=== PATIENT | female | born 1970 | race Caucasian/White ===

== ENCOUNTER 2021-07-19 11:24 | Observation (INO) ==
[2021-07-19] MEDS ORDERED: NS 1,000 ML IV 1,000 ML IV ONE (12:11)
--- NOTE | 2021-07-19 12:12 | DR.VAGB ---
HPI Time Seen Time Seen by Provider: 07/19/21 12:00 Complaint Chief Complaint Doctors Comments: 50 y/o female presents for evaluation. Having vaginal bleeding. Seen by medical provider yesterday, was called and told her Hgb was very low. Pt has had regular menses, up until last month, missed. Started bleeding 3 weeks ago, has persisted. Feeling lightheaded, weak anf fatigued. Having some lower abdominal discomfort, dull, off/on. Nothing makes it better, nothing makes it worse. Does not take ASA or blood thinning products. Reviewed Nurses Notes Review: Yes Source History Provided: Patient Mode of Arrival Mode of Arrival: Ambulatory [facility] Past Medical History: No Past Surgical History: Yes Past Surgical History Comment: Gastric sleeve Family History History of Family Medical Conditions: No Social History Does patient currently use any type of tobacco product: No Have you used tobacco products in the last 12 months: No Does any household member use tobacco: No Alcohol Use: None Do you use any recreational Drugs:: No ROS Review of Systems Constitutional: Malaise, Weakness and Fatigue Eyes: No Symptoms Reported ENTM: No Symptoms Reported Respiratoy: No Symptoms Reported Cardiovascular: No Symptoms Reported Gastrointestinal/Abdominal: No Symptoms Reported Genitourinary: Bleeding Neurological: No Symptoms Reported Musculoskeletal: No Symptoms Reported Integumentary: No Symptoms Reported Hematologic/Lymphatic: No Symptoms Reported Psychiatric: No Symptoms Reported All Other Systems: Reviewed and Negative PE Vital Signs Vitals: Pulse Rate 76 Respiratory Rate 16 Blood Pressure 109/59 O2 Sat by Pulse Oximetry 100 General Limitations: No Limitations General Appearance: Alert and In No Apparent Distress Head Head Exam: Normal Inspection Eyes Eye exam: PERRL and EOMI ENT ENT Exam: Mucous Membranes Moist Neck Neck Exam: Normal Inspection and Full ROM Chest Chest Inspection: Normal Inspection Respiratory Respiratory Exam: Normal Lung Sounds Bilat; negative Accessory Muscle Use and Respiratory Distress Respiratory Exam: Bilateral: Clear to Auscultation Cardiovascular Cardiovascular Exam: Regular Rate, Normal Rhythm and Normal Heart Sounds Abdominal Exam Abdominal Exam: Normal Bowel Sounds, Soft and Tenderness (mild, across lower abd, no guarding/rebound) Extremities Extremities Exam: Normal Inspection and Full ROM; negative Edema Neurologic Neurological Exam: Alert, Oriented X3 and CN II-XII Intact; negative Motor Sensory Deficit Skin Skin Exam: Warm and Dry MDM Differential diagnosis Diffenential diagnosis: Menometorrhagia, Myomatous uterus and Other (anemia, iron deficiency) COURSE Treatment Treatment: 50 y/o female with heavy vaginal bleeding, anemia. W/u shows Hgb to be 6.4. Rest of labs acceptable. US shows uterus fibroid changes. Discussed with covering MD, Dr Albright. Will admit for blood transfusion, IV replacement therapy. Discussed fibroid uterus, possible treatment options. ROR Labs Reviewed Laboratory Results Reviewed?: Yes Result Diagrams: 07/19/21 13:18 07/19/21 13:18 Laboratory: WBC 4.8 X10^3/uL (3.6-10.0) 07/19/21 13:18 RBC 3.90 X10^6/uL (3.5-5.4) 07/19/21 13:18 Hgb 6.4 g/dL (12.0-16.0) L* 07/19/21 13:18 Hct 22.1 % (36.0-47.0) L 07/19/21 13:18 MCV 56.6 fL (80.0-100.0) L 07/19/21 13:18 MCH 16.4 pg (27.0-34.0) L 07/19/21 13:18 MCHC 29.0 g/dL (33.0-35.0) L 07/19/21 13:18 RDW 19.8 % (11.6-16.5) H 07/19/21 13:18 Plt Count 239 X10^3/uL (150.0-450.0) 07/19/21 13:18 Plt Count Comment Adequate (ADEQUATE) 07/19/21 13:18 MPV 8.8 fL (7.4-11.0) 07/19/21 13:18 Neut % (Auto) 63.8 % (42.0-75.0) 07/19/21 13:18 Lymph % (Auto) 28.5 % (21.0-51.0) 07/19/21 13:18 [place] % (Auto) 5.9 % (0.0-13.0) 07/19/21 13:18 Eos % (Auto) 0.7 % (0.9-2.9) L 07/19/21 13:18 Baso % (Auto) 1.1 % (0.2-1.0) H 07/19/21 13:18 Neut # (Auto) 3.0 x10^3/uL (2.2-4.8) 07/19/21 13:18 Lymph # (Auto) 1.4 X10^3/uL (1.3-2.9) 07/19/21 13:18 [place] # (Auto) 0.3 x10^3/uL (0.3-0.8) 07/19/21 13:18 Eos # (Auto) 0.0 x10^3/uL (0.0-0.2) 07/19/21 13:18 Baso # (Auto) 0.1 X10^3/uL (0.0-0.1) 07/19/21 13:18 Absolute Nucleated RBC 0.1 /100WBC 07/19/21 13:18 Plt Morphology Comment Normal (NORMAL) 07/19/21 13:18 RBC Morphology Abnormal (NORMAL) A 07/19/21 13:18 Hypochromasia 3+ A 07/19/21 13:18 Anisocytosis Slight A 07/19/21 13:18 Microcytosis 3+ A 07/19/21 13:18 Sodium 136 mmol/L (136-145) 07/19/21 13:18 Corrected Sodium TNP 07/19/21 13:18 Potassium 3.5 mmol/L (3.5-5.1) 07/19/21 13:18 Chloride 103 mmol/L (98-107) 07/19/21 13:18 Carbon Dioxide 26.5 mmol/L (21-32) 07/19/21 13:18 BUN 12 mg/dL (7-18) 07/19/21 13:18 Creatinine 0.63 mg/dL (0.55-1.02) 07/19/21 13:18 Est GFR (MDRD) Af Amer > 60 (>60) 07/19/21 13:18 Est GFR (MDRD) Non-Af > 60 (>60) 07/19/21 13:18 Glucose 85 mg/dL (65-99) 07/19/21 13:18 Calcium 8.3 mg/dL (8.5-10.1) L 07/19/21 13:18 Corrected Calcium TNP 07/19/21 13:18 Total Bilirubin 0.50 mg/dL (0.2-1.0) 07/19/21 13:18 AST 19 Units/L (15-37) 07/19/21 13:18 ALT 15 Units/L (12-78) 07/19/21 13:18 Alkaline Phosphatase 88 Units/L (46-116) 07/19/21 13:18 Total Protein 7.6 g/dL (6.4-8.2) 07/19/21 13:18 Albumin 4.0 g/dL (3.4-5.0) 07/19/21 13:18 Globulin 3.6 g/dL (2.5-4.5) 07/19/21 13:18 Albumin/Globulin Ratio 1.1 Ratio (1.1-2.1) 07/19/21 13:18 Lipase 60 Units/L (73-393) L 07/19/21 13:18 HCG, Qual Negative <10 mIU/mL 07/19/21 13:18 Specimen Type Clean catch urine 07/19/21 12:25 Urine Color Yellow (YELLOW) 07/19/21 12:25 Urine Appearance Hazy (CLEAR) 07/19/21 12:25 Urine pH 8.0 (5.0 - 8.0) 07/19/21 12:25 Ur Specific [place] 1.015 (1.000-1.030) 07/19/21 12:25 Urine Protein 2+ (NEGATIVE) 07/19/21 12:25 Urine Glucose (UA) Negative (NEGATIVE) 07/19/21 12:25 Urine Ketones Negative (NEGATIVE) 07/19/21 12:25 Urine Blood 5+ (NEGATIVE) 07/19/21 12:25 Urine Nitrite Negative (NEGATIVE) 07/19/21 12:25 Urine Bilirubin Negative (NEGATIVE) 07/19/21 12:25 Urine Urobilinogen 2+ (NORMAL) 07/19/21 12:25 Ur Leukocyte Esterase 2+ (NEGATIVE) 07/19/21 12:25 Urine RBC Tntc /HPF (0-3) A 07/19/21 12:25 Urine WBC 3-5 /HPF (0-5) 07/19/21 12:25 Ur Squamous Epith Cells Few /HPF (NEGATIVE) 07/19/21 12:25 Urine Bacteria Trace /HPF (NEGATIVE) 07/19/21 12:25 Urine Mucus Few /HPF (NEGATIVE) 07/19/21 12:25 Ur Culture Indicated? No/not indicated 07/19/21 12:25 Blood Type O POSITIVE 07/19/21 13:18 Antibody Screen Negative 07/19/21 13:18 Other Results Comments: Hgb 6.4. XRAY XRAY Interpreted by: Radiologist X-ray Results: + uterine fibroids Opioid Opioid Risk Tool Total: 0 Total Score Risk Category: Low Risk Copyright: [employer]dy [employer] predicting aberrant behaviors Diagnosis Discharge Problem: Symptomatic anemia Menorrhagia Qualifiers: Menorrhagia type: with irregular cycle Qualified Code(s): N92.1 - Excessive and frequent menstruation with irregular cycle
[2021-07-19] MEDS ORDERED: NS 1,000 ML IV 1,000 ML ONE (12:28)
[2021-07-19 12:44] LABS: BILIRUBIN,URINE NEGATIVE (NEGATIVE); BLOOD/HEMOGLOBIN,URINE 5+ (NEGATIVE); GLUCOSE, URINE NEGATIVE (NEGATIVE); KETONES,URINE NEGATIVE (NEGATIVE); LEUKOCYTE ESTERASE ,URINE 2+ (NEGATIVE); NITRITES,URINE NEGATIVE (NEGATIVE); PROTEIN,URINE 2+ (NEGATIVE); UROBILINOGEN,URINE 2+ (NORMAL)
[2021-07-19 12:52] LABS: APPEARANCE,URINE HAZY (CLEAR); COLOR,URINE YELLOW (YELLOW)
[2021-07-19 12:53] LABS: BACTERIA,URINE TRACE /HPF (NEGATIVE); RBC,URINE TNTC /HPF (0-3); SQUAMOUS EPITHELIAL CELL,UR FEW /HPF (NEGATIVE)
[2021-07-19 13:28] LABS: LYMPHOCYTES # (AUTO) 1.4 X10^3/uL (1.3-2.9); RED CELL DISTRIBUTION WIDTH 19.8 % (11.6-16.5); WHITE BLOOD COUNT 4.8 X10^3/uL (3.6-10.0)
[2021-07-19 13:35] LABS: BASOPHILS # (AUTO) 0.1 X10^3/uL (0.0-0.1); BASOPHILS % (AUTO) 1.1 % (0.2-1.0); EOSINOPHILS % (AUTO) 0.7 % (0.9-2.9); HEMATOCRIT 22.1 % (36.0-47.0); LYMPHOCYTES % (AUTO) 28.5 % (21.0-51.0); MEAN CORPUSCULAR HEMOGLOBIN 16.4 pg (27.0-34.0); MEAN CORPUSCULAR VOLUME 56.6 fL (80.0-100.0); MEAN PLATELET VOLUME 8.8 fL (7.4-11.0); MONOCYTES # (AUTO) 0.3 x10^3/uL (0.3-0.8); MONOCYTES % (AUTO) 5.9 % (0.0-13.0); NEUTROPHILS % (AUTO) 63.8 % (42.0-75.0)
--- NOTE | 2021-07-19 13:36 | US ---
History:Vaginal bleeding for 3 weeksExam: Transvaginal pelvic ultrasoundComparison:NoneTechnique: Multiple grayscale and color flow Doppler images of the pelvis were obtained.Findings:The uterus measures 8.2 x 4.4 x 4.5 centimeters. The endometrial stripe measures 5 mm. There is a hypoechoic solid mass at the uterine fundus measuring 4.9 x 4.3 x 3.9 centimeters compatible a uterine fibroid. Additional hypoechoic areas are present.The right ovary measures 3.4 x 1.9 x 2.3 centimeters with normal flow. The left ovary measures 4.2 x 2.8 x 3 centimeters with normal flow. There is a 1.7 centimeter right ovarian cyst. No significant free fluid .IMPRESSION:Leiomyomatous uterus. The largest fibroid at the fundus measures 4.9 centimeters.Normal endometrial thickness.1.7 centimeter right ovarian cyst.Electronically signed by: ZUHAIR GARCIA (July 19, 2021 13:35:38)
[2021-07-19 13:37] LABS: HEMOGLOBIN 6.4 g/dL (12.0-16.0)
[2021-07-19 13:42] LABS: ALANINE AMINOTRANSFERASE 15 Units/L (12-78); ALKALINE PHOSPHATASE 88 Units/L (46-116); ASPARTATE AMINO TRANSFERASE 19 Units/L (15-37); BLOOD UREA NITROGEN 12 mg/dL (7-18); CALCIUM 8.3 mg/dL (8.5-10.1); CARBON DIOXIDE 26.5 mmol/L (21-32); CHLORIDE 103 mmol/L (98-107); CREATININE 0.63 mg/dL (0.55-1.02); LIPASE 60 Units/L (73-393); SERUM PREGNANCY TEST, QUAL NEGATIVE <10 mIU/mL; SODIUM 136 mmol/L (136-145); TOTAL PROTEIN 7.6 g/dL (6.4-8.2); eGFR NON BLACK RACES > 60 (>60)
[2021-07-19 13:48] LABS: ANISOCYTOSIS SLIGHT; HYPOCHROMASIA 3+; MICROCYTOSIS 3+; PLATELET MORPHOLOGY COMMENT NORMAL (NORMAL)
[2021-07-19] MEDS ORDERED: INFeD or DEXFERRUM 25 MG in NS 100 ML IV 100 ML IV ONE (16:00)
[2021-07-19 16:12] VITALS: BMI 32.3
[2021-07-19] MEDS ORDERED: INFeD or DEXFERRUM 975 MG in NS 500 ML IV 500 ML IV ONE (17:00)
[2021-07-19] MEDS ORDERED: NS 250 ML IV 250 ML IV ONE (23:18)
[2021-07-20 07:29] LABS: BASOPHILS % (AUTO) 0.9 % (0.2-1.0); EOSINOPHILS # (AUTO) 0.1 x10^3/uL (0.0-0.2); EOSINOPHILS % (AUTO) 1.6 % (0.9-2.9); HEMATOCRIT 27.2 % (36.0-47.0); LYMPHOCYTES # (AUTO) 1.2 X10^3/uL (1.3-2.9); LYMPHOCYTES % (AUTO) 31.7 % (21.0-51.0); MEAN CORPUSCULAR HEMOGLOBIN 20.3 pg (27.0-34.0); MEAN CORPUSCULAR HGB CONC 31.5 g/dL (33.0-35.0); MEAN CORPUSCULAR VOLUME 64.4 fL (80.0-100.0); MEAN PLATELET VOLUME 8.8 fL (7.4-11.0); MONOCYTES # (AUTO) 0.2 x10^3/uL (0.3-0.8); MONOCYTES % (AUTO) 5.8 % (0.0-13.0); NEUTROPHILS # (AUTO) 2.2 x10^3/uL (2.2-4.8); RED BLOOD COUNT 4.22 X10^6/uL (3.5-5.4); RED CELL DISTRIBUTION WIDTH 28.3 % (11.6-16.5); WHITE BLOOD COUNT 3.7 X10^3/uL (3.6-10.0)
[2021-07-20 07:35] LABS: HEMOGLOBIN 8.6 g/dL (12.0-16.0)
[2021-07-20 07:52] LABS: HYPOCHROMASIA 3+; PLATELET MORPHOLOGY COMMENT NORMAL (NORMAL)
[2021-07-20 07:53] LABS: ANISOCYTOSIS 3+; MICROCYTOSIS 2+; POIKILOCYTOSIS 1+
[2021-07-20 08:04] VITALS: BP 144/72
[2021-07-20] MEDS ORDERED: PROVERA PO SCH (10:00)
== END 2021-07-20 10:15 | disposition home or self-care (01) ==
LOC: ER 11:24 → INTOOBSV 14:13 → MED/SURG 14:13
PROVIDERS: ADMIT Obstetrics & Gynecology Obstetrics; ATTEND Obstetrics & Gynecology Obstetrics
DX: R53.1 Weakness; Z20.822 Contact with and (suspected) exposure to COVID-19; N83.291 Other ovarian cyst, right side; D64.89 Other specified anemias; N92.0 Excessive and frequent menstruation with regular cycle; D25.9 Leiomyoma of uterus, unspecified